=== PATIENT | male | born 2000 | race Caucasian/White ===

== ENCOUNTER 2023-04-03 23:24 | Emergency (ER) | payer OTHER, BC ==
[2023-04-03 23:36] VITALS: BP 132/80; PULSE 69; RESP 18; TEMP 98
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
== END 2023-04-04 00:04 | disposition home or self-care (01) ==
LOC: EC 23:24
DX: Z04.3 Encounter for examination and observation following other accident (principal); F17.290 Nicotine dependence, other tobacco product, uncomplicated
CPT/HCPCS: 99283